=== PATIENT | male | born 1990 | race Caucasian/White ===

== ENCOUNTER 2023-09-24 18:58 | Emergency (ER) | payer BC ==
[~2023-09-24] VITALS: Ht 188 cm; Wt 97.5 kg
[2023-09-24 19:15] VITALS: BP_SYST 159; PULSE 92; RESP 16; TEMP 97.6; O2SAT 98
[2023-09-24] MEDS ORDERED: LIDOCAINE 1%, 20 ML MDV 20 ML ONE (20:55)
[2023-09-24] MEDS ORDERED: LIDOCAINE 1% 10 MG/ML, 20 ML MDV INJ ONE (21:00)
[2023-09-24] MEDS ORDERED: DIPHTH,PERTUSS(ACELL),TET VAC 0.5 ML VIAL (Tdap) I.M. ONE (21:15)
[2023-09-24] MEDS ORDERED: BACITRACIN 1 GM OINT TP ONE (21:15)
[2023-09-24 21:52] VITALS: BP_SYST 145; PULSE 88; RESP 20; TEMP 97.6; O2SAT 97
== END 2023-09-24 21:25 | disposition home or self-care (01) ==
LOC: SED 18:58
DX: S61.012A Laceration without foreign body of left thumb without damage to nail, initial encounter (principal); I48.91 Unspecified atrial fibrillation; W26.0XXA Contact with knife, initial encounter; Y93.89 Activity, other specified; Y92.89 Other specified places as the place of occurrence of the external cause; Y99.8 Other external cause status
CPT/HCPCS: 99283; 90715; 90471; 12001; J2001